=== PATIENT | female | born 1950 | race Caucasian/White ===

== ENCOUNTER 2024-04-10 10:08 | Emergency (ER) | payer MEDICARE, OTHER ==
[~2024-04-10] VITALS: Ht 157.5 cm; Wt 64.0 kg
[2024-04-10] MEDS ORDERED: LEXAPRO20 MG PO (10:42)
[2024-04-10] MEDS ORDERED: METFORMIN500 MG/5 M (10:42)
[2024-04-10] MEDS ORDERED: BUSPIRONE HCL10 MG PO (10:42)
[2024-04-10] MEDS ORDERED: IMITREX50 MG PO (10:48)
[2024-04-10] MEDS: ONDANSETRON HCL 4 MG ORAL DISINTEGRATING TAB PO ONE (11:06)
[2024-04-10] MEDS: KETOROLAC TROMETHAMINE 30 MG/ML VIAL IM ONE (11:07)
[2024-04-10] MEDS: ACETAMINOPHEN 325 MG TAB PO ONE (11:07)
[2024-04-10 11:17] VITALS: PULSE 75; RESP 14; TEMP 97.5; O2SAT 98
== END 2024-04-10 11:17 | disposition home or self-care (01) ==
LOC: FSED 10:13
DX: G43.909 Migraine, unspecified, not intractable, without status migrainosus (principal)
CPT/HCPCS: 81003; 96372; 99283; J1885; Q0162